=== PATIENT | female | born 1985 | race Hispanic/Latino ===

== ENCOUNTER 2022-07-28 16:30 | Day surgery (SDC) | payer SELFPAY ==
[2022-07-28 19:25] LABS: Creatinine, Urine 180.5 mg/dL (47-110)
[2022-07-28 19:34] LABS: #Eosinphils 0.1 10x3/uL (0.0-0.5); #Monocytes 0.7 10x3/uL (0.0-1.1); #Neutrophils 6.2 10x3/uL (1.5-8.4); %Basophils 0.2 % (0.0-2.0); %Eosinophils 1.6 % (0.0-6.0); %Lymphocytes 20.3 % (18.0-47.0); %Monocytes 7.3 % (0.0-10.0); Hemoglobin 10.8 g/dL (12.0-15.5); Mean Corpuscular HGB CONC 33.2 g/dL (32.0-36.0); Mean Corpuscular Hemoglobin 30.9 pg (27.0-33.0); Mean Corpuscular Volume 92.9 fl (81.6-98.3); Mean Platelet Volume 9.8 fl (7.4-10.4); Platelet Count 288 10x3/uL (150-450); White Blood Cell (WBC) Count 8.9 10x3/uL (3.5-10.5)
[2022-07-28 19:52] LABS: ALT (SGPT) 6 U/L (8-55); AST (SGOT) 13 U/L (5-34); Albumin 3.6 g/dL (3.5-5.0); Alkaline Phosphatase 75 U/L (40-110); Anion Gap 12 mmol/L (10-20); BUN (Urea Nitrogen) 10 mg/dL (7.0-18.7); Bilirubin, Total 0.1 mg/dL (0.2-1.2); Calc. Creatinine Clearance 0 mL/min (70-130); Calcium 9.2 mg/dL (7.8-10.44); Carbon Dioxide 23 mmol/L (22-29); Chloride 107 mmol/L (98-107); Estimated GFR 116; Globulin 3.3 g/dL (2.4-3.5); Glucose 115 mg/dL (70-105); Potassium 3.8 mmol/L (3.5-5.1); Protein, Total 6.9 g/dL (6.0-8.3); Sodium 138 mmol/L (136-145)
== END 2022-07-28 21:15 | disposition home or self-care (01) ==
LOC: CSHLD/OP 16:30
PROVIDERS: ATTEND Family Medicine
DX: O13.2 Gestational [pregnancy-induced] hypertension without significant proteinuria, second trimester (principal); O99.012 Anemia complicating pregnancy, second trimester; D64.9 Anemia, unspecified; Z3A.25 25 weeks gestation of pregnancy
CPT/HCPCS: 36415; 80053; 82570; 84156; 85025; 99283

== ENCOUNTER 2022-10-21 17:11 | Inpatient (IN) | payer MEDICAID, OTHER, SELFPAY ==
[~2022-10-21 17:11] MED LIST: Bupivacaine/Epinephrine 0.25% 30 ML VIAL ONE
[2022-10-21] MEDS ORDERED: hydrALAZINE 20 MG/ML VIAL SLOW IVP PRN ×2 (17:55→18:08)
[2022-10-21] MEDS ORDERED: Ondansetron PF 4 MG/2 ML Vial IVP PRN (17:55)
[2022-10-21] MEDS ORDERED: Lidocaine 1% (PF) 30 ML VIAL SC PRN (17:55)
[2022-10-21] MEDS ORDERED: Promethazine HCl 25 MG/ML VIAL IM PRN (17:55)
[2022-10-21] MEDS ORDERED: Ibuprofen 800 MG TAB PO PRN (18:01)
[2022-10-21] MEDS ORDERED: Carboprost 250 MCG/ML AMP IM PRN (18:01)
[2022-10-21] MEDS ORDERED: Misoprostol 200 MCG TAB PR PRN (18:01)
[2022-10-21] MEDS ORDERED: Lorazepam 2 MG/ML VIAL SLOW IVP PRN (18:08)
[2022-10-21] MEDS ORDERED: Calcium Gluc 4.6 MEQ/10 ML (100 MG/ML) SLOW IVP PRN (18:08)
[2022-10-21] MEDS ORDERED: Labetalol HCl 100 MG/20 ML VIAL SLOW IVP PRN ×3 (18:08)
[2022-10-21 20:39] VITALS: BMI 33.3
[2022-10-21 20:50] LABS: #Eosinphils 0.1 10x3/uL (0.0-0.5); #Monocytes 0.5 10x3/uL (0.0-1.1); #Neutrophils 4.5 10x3/uL (1.5-8.4); %Basophils 0.3 % (0.0-2.0); %Eosinophils 1.6 % (0.0-6.0); %Lymphocytes 23.2 % (18.0-47.0); %Monocytes 7.5 % (0.0-10.0); %Neutrophils 65.7 % (40.0-75.0); Hemoglobin 10.5 g/dL (12.0-15.5); Mean Corpuscular HGB CONC 33.9 g/dL (32.0-36.0); Mean Corpuscular Hemoglobin 30.3 pg (27.0-33.0); Mean Corpuscular Volume 89.6 fl (81.6-98.3); Mean Platelet Volume 10.6 fl (7.4-10.4); Platelet Count 229 10x3/uL (150-450); RBC Distribution Width 13.6 % (11.5-14.5); Red Blood Cell (RBC) Count 3.46 10x6/uL (3.90-5.03); White Blood Cell (WBC) Count 6.9 10x3/uL (3.5-10.5)
[2022-10-21] MEDS ORDERED: NS w/ Oxytocin 30 units 500 ML IV SCH (21:00)
[2022-10-21 21:01] LABS: ALT (SGPT) 8 U/L (8-55); AST (SGOT) 17 U/L (5-34); Albumin 3.2 g/dL (3.5-5.0); Alkaline Phosphatase 162 U/L (40-110); Anion Gap 13 mmol/L (10-20); BUN (Urea Nitrogen) 8 mg/dL (7.0-18.7); Bilirubin, Total 0.2 mg/dL (0.2-1.2); Calc. Creatinine Clearance 151 mL/min (70-130); Calcium 8.3 mg/dL (7.8-10.44); Carbon Dioxide 20 mmol/L (22-29); Chloride 109 mmol/L (98-107); Estimated GFR 119; Globulin 2.8 g/dL (2.4-3.5); Glucose 81 mg/dL (70-105); Potassium 3.9 mmol/L (3.5-5.1); Sodium 138 mmol/L (136-145)
[2022-10-21] MEDS: Misoprostol 100 MCG TAB VAG SCH (21:12)
[2022-10-21] MEDS: Labetalol HCl 100 MG TAB PO SCH (21:12)
[2022-10-21] MEDS: Lactated Ringer's 1,000 ML IV SCH (21:12)
[2022-10-21 21:39] LABS: Hep B Surf Ag Non-Reactive S/CO (NonReactive)
[2022-10-21 21:43] LABS: HBSAg Index 0.18 S/CO (0-0.99)
[2022-10-21 21:45] LABS: Syphilis Antibody Nonreactive (Nonreactive); Syphilis Antibody Index 0.03 S/CO (<1.00 Non-Reactive)
[2022-10-21 23:08] LABS: Creatinine, Urine 94.86 mg/dL (47-110)
[2022-10-22] MEDS: Labetalol HCl 100 MG TAB PO SCH (09:18)
[2022-10-22] MEDS ORDERED: Fentanyl 2 mcg/Bup 0.1% Cadd 100 ML ONE ×2 (11:45→18:54)
[2022-10-22] MEDS ORDERED: diphenhydrAMINE 50 MG/ML VIAL IVP PRN (11:53)
[2022-10-22] MEDS ORDERED: Moisturizing Cream (Eucerin) 113 GM JAR TOP PRN (11:53)
[2022-10-22] MEDS ORDERED: Promethazine HCl 25 MG/ML VIAL IM PRN ×2 (11:53→23:30)
[2022-10-22] MEDS ORDERED: Naloxone HCl 0.4 mg/ml Vial IVP PRN ×2 (11:53)
[2022-10-22] MEDS ORDERED: ePHEDrine Sulfate 50 MG/10 ML VIAL SLOW IVP PRN (11:53)
[2022-10-22] MEDS ORDERED: Acetaminophen 325 MG TAB PO PRN (11:53)
[2022-10-22] MEDS ORDERED: Ondansetron PF 4 MG/2 ML Vial IVP PRN ×2 (11:53→23:30)
[2022-10-22] MEDS ORDERED: Lactated Ringer's 500 ML IV PRN (11:56)
[2022-10-22] MEDS ORDERED: Communication Order-Pharmacy FS SCH (12:00)
[2022-10-22] MEDS: Fentanyl 2 mcg/Bupivacaine 0.1% Cassette 100 ML EPIDURAL SCH ×2 (12:18→19:00)
[2022-10-22] MEDS ORDERED: Misoprostol 200 MCG TAB ONE (22:21)
[2022-10-22] MEDS ORDERED: Benzocaine-Menthol 82.5 ML CAN TOP PRN (23:30)
[2022-10-22] MEDS ORDERED: Misoprostol 200 MCG TAB VAG PRN (23:30)
[2022-10-22] MEDS ORDERED: hydrALAZINE 20 MG/ML VIAL SLOW IVP PRN ×2 (23:30)
[2022-10-22] MEDS ORDERED: Bisacodyl 10 MG SUPP PR PRN (23:30)
[2022-10-22] MEDS ORDERED: Boostrix 0.5 ML (Tdap) VIAL (>/=7 yrs of age) IM ONE (23:30)
[2022-10-22] MEDS ORDERED: Milk Of Magnesia 30 ML UDCUP PO PRN (23:30)
[2022-10-22] MEDS ORDERED: NS w/ Oxytocin 30 units 500 ML IV SCH (23:30)
[2022-10-23] MEDS: Misoprostol 100 MCG TAB VAG SCH ×3 (01:19→01:21)
[2022-10-23] MEDS: Labetalol HCl 100 MG TAB PO SCH (01:21)
[2022-10-23] MEDS: Lactated Ringer's 1,000 ML IV SCH (01:21)
[2022-10-23] MEDS ORDERED: Witch Hazel-Glycerin 1 EACH JAR TOP PRN (01:27)
[2022-10-23] MEDS: Ibuprofen 800 MG TAB PO SCH ×3 (05:54→22:10)
[2022-10-23] MEDS: Ferrous Sulfate 325 MG TAB PO SCH ×2 (07:15→16:30)
[2022-10-23] MEDS ORDERED: Labetalol HCl 100 MG TAB PO SCH (09:00)
[2022-10-23] MEDS: Docusate 100 MG CAP PO SCH ×2 (09:07→22:07)
[2022-10-23] MEDS: Prenatal Vitamin 1 TAB PO SCH (09:07)
[2022-10-23] MEDS ORDERED: NIFEdipine XL 30 MG TAB PO SCH (21:00)
[2022-10-24] MEDS: Ibuprofen 800 MG TAB PO SCH ×2 (05:31→14:33)
[2022-10-24] MEDS: Ferrous Sulfate 325 MG TAB PO SCH ×2 (07:31→16:14)
[2022-10-24] MEDS: Docusate 100 MG CAP PO SCH (07:51)
[2022-10-24] MEDS: Prenatal Vitamin 1 TAB PO SCH (07:51)
[2022-10-24] MEDS ORDERED: NIFEdipine XL 30 MG TAB PO SCH (08:00)
[2022-10-24 11:43] VITALS: TEMP 97.9
[2022-10-24 16:12] VITALS: BP 140/79
== END 2022-10-24 18:42 | disposition home or self-care (01) | DRG 807 ==
LOC: CSHLD 17:11 → CSHPP 10-23 00:50
PROVIDERS: ADMIT Obstetrics & Gynecology; ATTEND Obstetrics & Gynecology
PROC: 3E0P7VZ Introduction of Hormone into Female Reproductive, Via Natural or Artificial Opening (ICD-10-PCS; 2022-10-21)
PROC: 10E0XZZ Delivery of Products of Conception, External Approach (ICD-10-PCS; principal; 2022-10-22)
PROC: 0KQM0ZZ Repair Perineum Muscle, Open Approach (ICD-10-PCS; 2022-10-22)
PROC: 10907ZC Drainage of Amniotic Fluid, Therapeutic from Products of Conception, Via Natural or Artificial Opening (ICD-10-PCS; 2022-10-22)
PROC: 10H07YZ Insertion of Other Device into Products of Conception, Via Natural or Artificial Opening (ICD-10-PCS; 2022-10-22)
DX: O10.92 Unspecified pre-existing hypertension complicating childbirth (principal); Z37.0 Single live birth; Z3A.38 38 weeks gestation of pregnancy; Z20.822 Contact with and (suspected) exposure to COVID-19; Z79.899 Other long term (current) drug therapy; E66.9 Obesity, unspecified; O99.214 Obesity complicating childbirth; O76 Abnormality in fetal heart rate and rhythm complicating labor and delivery; O70.1 Second degree perineal laceration during delivery; O13.5 Gestational [pregnancy-induced] hypertension without significant proteinuria, complicating the puerperium
CPT/HCPCS: 36415; 51702; 80053; 82570; 84156; 85025; 86780; 86850; 86900; 86901; 87340; J2405; J2590; J7120; U0003; U0005

== ENCOUNTER 2022-11-04 10:47 | Inpatient (IN) | payer MEDICAID, SELFPAY ==
[2022-11-04] MEDS ORDERED: hydrALAZINE 20 MG/ML VIAL ONE (11:04)
[2022-11-04] MEDS ORDERED: Magnesium Sulfate 20 gm/500 ml 0 GM/0 ML BAG ONE (11:04)
[2022-11-04] MEDS ORDERED: hydrALAZINE 20 MG/ML VIAL SLOW IVP PRN (11:05)
[2022-11-04 11:54] LABS: #Basophils 0.1 10x3/uL (0.0-0.2); #Eosinphils 0.3 10x3/uL (0.0-0.5); #Monocytes 0.4 10x3/uL (0.0-1.1); #Neutrophils 4.4 10x3/uL (1.5-8.4); %Basophils 0.7 % (0.0-2.0); %Eosinophils 4.1 % (0.0-6.0); %Lymphocytes 24.4 % (18.0-47.0); %Monocytes 5.3 % (0.0-10.0); %Neutrophils 64.8 % (40.0-75.0); Hemoglobin 11.4 g/dL (12.0-15.5); Mean Corpuscular HGB CONC 33.1 g/dL (32.0-36.0); Mean Corpuscular Hemoglobin 29.3 pg (27.0-33.0); Mean Corpuscular Volume 88.4 fl (81.6-98.3); Platelet Count 352 10x3/uL (150-450); RBC Distribution Width 12.7 % (11.5-14.5); Red Blood Cell (RBC) Count 3.89 10x6/uL (3.90-5.03); White Blood Cell (WBC) Count 6.8 10x3/uL (3.5-10.5)
[2022-11-04] MEDS ORDERED: Labetalol HCl 100 MG/20 ML VIAL SLOW IVP SCH (12:00)
[2022-11-04] MEDS ORDERED: NIFEdipine XL 30 MG TAB PO SCH ×3 (12:00→21:00)
[2022-11-04 12:23] LABS: ALT (SGPT) 10 U/L (8-55); AST (SGOT) 20 U/L (5-34); Albumin 3.9 g/dL (3.5-5.0); Alkaline Phosphatase 114 U/L (40-110); Anion Gap 13 mmol/L (10-20); BUN (Urea Nitrogen) 10 mg/dL (7.0-18.7); Bilirubin, Total 0.3 mg/dL (0.2-1.2); Calc. Creatinine Clearance 0 mL/min (70-130); Calcium 9.1 mg/dL (7.8-10.44); Carbon Dioxide 26 mmol/L (22-29); Chloride 104 mmol/L (98-107); Estimated GFR 107; Globulin 3.1 g/dL (2.4-3.5); Glucose 89 mg/dL (70-105); Potassium 4.4 mmol/L (3.5-5.1); Sodium 139 mmol/L (136-145)
[2022-11-04 12:44] LABS: Creatinine, Urine 53.44 mg/dL (47-110); Protein, Urine Random Quant Less than 10 mg/dL (1-14)
[2022-11-04 15:21] VITALS: BP 156/72
== END 2022-11-04 17:05 | disposition home or self-care (01) | DRG 776 ==
LOC: CSHLD 10:47
PROVIDERS: ADMIT Student in an Organized Health Care Education/Training Program; ATTEND Student in an Organized Health Care Education/Training Program
DX: O11.5 Pre-existing hypertension with pre-eclampsia, complicating the puerperium (principal); E66.9 Obesity, unspecified; O99.215 Obesity complicating the puerperium; Z82.49 Family history of ischemic heart disease and other diseases of the circulatory system; Z79.899 Other long term (current) drug therapy
CPT/HCPCS: 80053; 82570; 83880; 84156; 84484; 85025